=== PATIENT | male | born 1950 | race Caucasian/White ===

== ENCOUNTER 2019-08-16 12:04 | Outpatient (RCR) | payer BC, SELFPAY ==
[2019-05-31 12:44] LABS: INR 2.4; Prothrombin Time 25.6 Seconds (11.1-14.7)
[2019-07-08 12:50] LABS: INR 2.3; Prothrombin Time 24.4 Seconds (11.1-14.7)
[2019-08-16 13:39] LABS: INR 1.4; Prothrombin Time 16.6 Seconds (11.1-14.7)
== END 2019-08-29 23:59 | disposition home or self-care (01) ==
LOC: ANHLAB 12:04
PROVIDERS: PCP Internal Medicine; Visit Provider Internal Medicine
DX: Z51.81 Encounter for therapeutic drug level monitoring (principal); Z79.01 Long term (current) use of anticoagulants
CPT/HCPCS: 36415; 85610

== ENCOUNTER 2019-12-18 10:43 | Outpatient (RCR) | payer BC, SELFPAY ==
[2019-09-20 10:48] LABS: INR 1.2
[2019-10-07 13:47] LABS: INR 1.4; Prothrombin Time 16.3 Seconds (11.1-14.7)
[2019-10-21 12:31] LABS: INR 1.6; Prothrombin Time 18.7 Seconds (11.1-14.7)
[2019-11-21 10:51] LABS: INR 2.7; Prothrombin Time 27.9 Seconds (11.1-14.7)
[2019-12-18 11:18] LABS: INR 2.7; Prothrombin Time 27.8 Seconds (11.1-14.7)
== END 2019-12-19 23:59 | disposition home or self-care (01) ==
LOC: ANHLAB 10:43
PROVIDERS: PCP Internal Medicine; Visit Provider Physician Assistant
DX: I48.0 Paroxysmal atrial fibrillation (principal)
CPT/HCPCS: 36415; 85610

== ENCOUNTER 2020-04-08 09:30 | Outpatient (RCR) | payer BC, SELFPAY ==
[2020-01-17 12:37] LABS: INR 4.2; Prothrombin Time 39.9 Seconds (11.1-14.7)
[2020-02-04 11:07] LABS: INR 2.2; Prothrombin Time 24.1 Seconds (11.1-14.7)
[2020-03-07 11:26] LABS: Prothrombin Time 22.4 Seconds (11.1-14.7)
[2020-04-08 10:07] LABS: INR 2.2; Prothrombin Time 24.3 Seconds (11.1-14.7)
== END 2020-04-16 23:59 | disposition home or self-care (01) ==
LOC: ANHLAB 09:30
PROVIDERS: PCP Internal Medicine; Visit Provider Physician Assistant
DX: I48.0 Paroxysmal atrial fibrillation (principal)
CPT/HCPCS: 36415; 85610

== ENCOUNTER 2020-08-14 08:29 | Outpatient (RCR) | payer BC, SELFPAY ==
[2020-06-02 10:58] LABS: INR 2.5; Prothrombin Time 27.3 Seconds (11.1-14.7)
[2020-07-13 14:32] LABS: INR 2.5; Prothrombin Time 27.9 Seconds (11.1-14.7)
[2020-08-14 09:14] LABS: INR 2.3; Prothrombin Time 25.8 Seconds (11.1-14.7)
== END 2020-08-31 23:59 | disposition home or self-care (01) ==
LOC: ANHLAB 08:29
PROVIDERS: PCP Internal Medicine; Visit Provider Physician Assistant
DX: I48.0 Paroxysmal atrial fibrillation (principal)
CPT/HCPCS: 36415; 85610

== ENCOUNTER → 2020-12-07 02:47 | Outpatient (CLI) | payer BC, SELFPAY ==
[2020-12-07 17:43] LABS: SARS-CoV-2 RNA PCR Negative
== END ==
PROVIDERS: PCP Internal Medicine; Visit Provider Internal Medicine Gastroenterology
DX: Z01.812 Encounter for preprocedural laboratory examination (principal); Z20.822 Contact with and (suspected) exposure to COVID-19
CPT/HCPCS: C9803; U0003; U0005

== ENCOUNTER 2020-12-10 00:40 | Day surgery (SDC) | payer BC, SELFPAY ==
[2020-12-01 10:28] VITALS: BMI 29.2
[2020-12-10] MEDS: LACTATED RINGERS 1,000 ML 150 ML IV CONT (09:23)
[2020-12-10 09:30] VITALS: BP 131/84; PULSE 91; RESP 16; TEMP 35.9; O2SAT 98
--- NOTE | 2020-12-10 09:34 | P.CONGI_ITS ---
GI Consult Note Consult date/time: 12/10/20 09:34 HPI: Reason for visit colonoscopy. This very pleasant gentleman seen in consultation request the primary physician. Impression: Screening and surveillance colonoscopy. The patient has a history of adenomatous colon polyps. History of atrial fibrillation. History DVT. Recommendation: Colonoscopy. History: Very pleasant gentleman is here for screening and surveillance colonoscopy. He has a history of colon polyps. GI review systems negative. Physical examination: General: very pleasant patient in no acute distress. HEENT: Head was normocephalic sclerae is clear mouth without masses neck was supple. Heart: Rate rhythm regular without S3 or S4. Lungs: CTA. Abdomen: Soft with no guarding or rigidity. Bowel sounds were active. Neurologic: Cranial nerves 2 through 12 intact. No focal defects. No clonus. Musculoskeletal system: Revealed no joint tenderness or swelling no muscle atrophy. Extremities: Reveal no significant edema. Skin: Warm and dry with normal turgor. Mental status: intact. Patient is alert and oriented. Review of Systems Review of Systems: All systems reviewed & are unremarkable except as noted in HPI and below [facility] Family History Family History Mother Family history of Alzheimer's disease, Onset Age: 77 Patient's mother is Sibling Diabetes mellitus Social History Social History Smoking packs per day: 0.5 Smoking cigarettes per day: 10.0 Years smoked: 20 Smoking pack-years: 10.00 Smoking status: Former smoker Tobacco type: cigarettes Second hand tobacco smoke exposure: No Smoking end date: 06/26/14 Alcohol intake: current Drinks per week: 7 Alcohol use details: COCKTAILS Substance use: never Substance use type: does not use Living arrangements: with family Spiritual care concerns: No Meds Home Medications and Allergies Home Medications Medication Instructions Recorded Confirmed Type warfarin 5 mg tablet 5 mg PO DAILY #90 tablet 06/01/20 12/01/20 Rx carvedilol 3.125 mg tablet 3.125 mg PO Q12H #180 tablet 06/12/20 12/10/20 Rx furosemide 20 mg tablet 20 mg PO QAM #90 tablet 09/08/20 12/01/20 Rx sildenafil 100 mg tablet 100 mg PO DAILY PRN #27 tablet 11/05/20 12/01/20 Rx Allergies Allergy/AdvReac Type Severity Reaction Status Date / Time No Known Allergies Allergy Verified 12/10/20 09:15 Vital Signs Vital Signs - 24 hr 12/10/20 09:30 Temperature 35.9 C L Pulse Rate 91 Respiratory Rate 16 Blood Pressure 131/84 Pulse Oximetry 98
[2020-12-10 10:15] LABS: Prothrombin Time 13.9 Seconds (11.1-14.7)
[2020-12-10 10:16] LABS: Partial Thromboplastin Time 27.4 SECONDS (22.3-36.8)
--- NOTE | 2020-12-10 10:51 | WPDANESEPPF ---
Anes - Initial Pre Proc Eval Procedure: Operation Date: 12/10/20 10:30 Proposed Procedures p Colonoscopy - Ryan Kruse DO Date/Time: 12/10/20 10:51 Surgeon: Ryan Kruse DO Pre Op Diagnosis: Hx of colon polyps, neoplasm screening Patient Data Age: 70 Gender: M Height: 6 ft Weight: 98 kg Last Vital Signs Temp 96.7 F L 12/10/20 09:30 Pulse 91 12/10/20 09:30 Resp 16 12/10/20 09:30 BP 131/84 12/10/20 09:30 Pulse Ox 98 12/10/20 09:30 Allergies Allergy/AdvReac Type Severity Reaction Status Date / Time No Known Allergies Allergy Verified 12/10/20 09:15 Home Medications Medication Instructions Recorded Confirmed Type warfarin 5 mg tablet 5 mg PO DAILY #90 tablet 06/01/20 12/01/20 Rx carvedilol 3.125 mg tablet 3.125 mg PO Q12H #180 tablet 06/12/20 12/10/20 Rx furosemide 20 mg tablet 20 mg PO QAM #90 tablet 09/08/20 12/01/20 Rx sildenafil 100 mg tablet 100 mg PO DAILY PRN #27 tablet 11/05/20 12/01/20 Rx Laboratory Tests 12/10/20 09:16 PT 13.9 Seconds Seconds (11.1-14.7) INR 1.0 APTT 27.4 SECONDS SECONDS (22.3-36.8) Patient hx anesthesia problems: none Family hx anesthesia problems: none PMFSH Past Medical History Medical History (Updated 12/10/20 @ 10:40 by Chino Almonte MD) Gastro-esophageal reflux disease without esophagitis Paroxysmal atrial fibrillation Systolic heart failure, chronic Family History Family History Mother Family history of Alzheimer's disease, Onset Age: 77 Patient's mother is Sibling Diabetes mellitus Social History Social History Smoking packs per day: 0.5 Smoking cigarettes per day: 10.0 Years smoked: 20 Smoking pack-years: 10.00 Smoking status: Former smoker Tobacco type: cigarettes Second hand tobacco smoke exposure: No Smoking end date: 06/26/14 Alcohol intake: current Drinks per week: 7 Alcohol use details: COCKTAILS Substance use: never Substance use type: does not use Living arrangements: with family Spiritual care concerns: No Anes - Eval Final PreProcedure Day of Procedure 12/10/20 10:51 Patient weight: overweight Heart: regular rate and rhythm Lungs: clear to auscultation Airway: Mallampati scale class II Neurological: alert and oriented Last oral intake: >/= 8 hours ASA classification: III Emergent: no Anesthetic plan: proceed Anesthesia type and monitoring: general GIVS and standard monitoring Informed Consent: The patient's anesthetic plan and its attendant risks and benefits were discussed with the patient/family/POA. Questions were solicited and answers provided to the satisfaction of the patient/family/POA.
[2020-12-10 11:35] VITALS: BP 110/74; PULSE 73; RESP 16; O2SAT 92
[2020-12-10 11:45] VITALS: BP 113/75; PULSE 67; RESP 19; O2SAT 98
[2020-12-10 11:55] VITALS: BP 112/82; PULSE 68; RESP 17; O2SAT 97
--- NOTE | 2020-12-10 12:26 | SUR.PHASEII ---
Patient to resume coumadin today and lovenox in [address] Kruse. Instructions given to pt and spouse who state understanding. Script given to pt to have PT/INR on Monday.
== END 2020-12-10 12:14 | disposition home or self-care (01) ==
PROVIDERS: PCP Internal Medicine; Visit Provider Internal Medicine Gastroenterology
PROC: 0DJD8ZZ Inspection of Lower Intestinal Tract, Via Natural or Artificial Opening Endoscopic (ICD-10-PCS; CPT 45378; principal; 2020-12-10 10:30)
DX: Z12.11 Encounter for screening for malignant neoplasm of colon (principal); D12.2 Benign neoplasm of ascending colon; K63.5 Polyp of colon; K62.1 Rectal polyp; K57.30 Diverticulosis of large intestine without perforation or abscess without bleeding; K64.8 Other hemorrhoids; I48.0 Paroxysmal atrial fibrillation; K21.9 Gastro-esophageal reflux disease without esophagitis; I50.22 Chronic systolic (congestive) heart failure; Z87.891 Personal history of nicotine dependence; Z86.718 Personal history of other venous thrombosis and embolism; Z79.01 Long term (current) use of anticoagulants
CPT/HCPCS: 45385; 45380; 36415; 85610; 85730; 88305; J7120

== ENCOUNTER 2020-12-12 08:30 | Outpatient (RCR) | payer BC, SELFPAY ==
[2020-09-14 08:55] LABS: INR 2.7; Prothrombin Time 29.6 Seconds (11.1-14.7)
[2020-10-17 12:13] LABS: INR 2.6; Prothrombin Time 28.3 Seconds (11.1-14.7)
[2020-11-17 08:35] LABS: INR 2.9; Prothrombin Time 30.7 Seconds (11.1-14.7)
[2020-12-12 09:22] LABS: INR 1.2; Prothrombin Time 15.4 Seconds (11.1-14.7)
== END 2020-12-13 23:59 | disposition home or self-care (01) ==
LOC: ANHLAB 08:30
PROVIDERS: PCP Internal Medicine; Visit Provider Physician Assistant
DX: I48.0 Paroxysmal atrial fibrillation (principal)
CPT/HCPCS: 36415; 85610

== ENCOUNTER 2021-02-15 08:25 | Outpatient (RCR) | payer BC, SELFPAY ==
[2020-12-19 10:27] LABS: INR 2.2; Prothrombin Time 24.6 Seconds (11.1-14.7)
[2021-01-13 09:05] LABS: INR 3.4; Prothrombin Time 33.4 Seconds (11.1-14.7)
[2021-02-15 09:15] LABS: INR 3.1; Prothrombin Time 30.7 Seconds (11.1-14.7)
== END 2021-03-19 23:59 | disposition home or self-care (01) ==
LOC: ANHLAB 08:25
PROVIDERS: PCP Internal Medicine; Visit Provider Physician Assistant
DX: I48.0 Paroxysmal atrial fibrillation (principal)
CPT/HCPCS: 36415; 85610

== ENCOUNTER 2021-06-07 09:35 | Outpatient (RCR) | payer BC, SELFPAY ==
[2021-03-27 10:49] LABS: INR 2.4; Prothrombin Time 25.6 Seconds (11.1-14.7)
[2021-04-30 13:24] LABS: INR 2.1; Prothrombin Time 22.7 Seconds (11.1-14.7)
[2021-06-07 10:21] LABS: INR 1.9
== END 2021-06-25 23:59 | disposition home or self-care (01) ==
LOC: ANHLAB 09:35
PROVIDERS: PCP Internal Medicine; Visit Provider Physician Assistant
DX: I48.0 Paroxysmal atrial fibrillation (principal)
CPT/HCPCS: 36415; 85610

== ENCOUNTER 2021-09-08 10:24 | Outpatient (RCR) | payer BC, MEDICARE, SELFPAY ==
[2021-07-14 10:32] LABS: INR 2.1; Prothrombin Time 22.9 Seconds (11.1-14.7)
[2021-08-11 10:50] LABS: INR 2.8; Prothrombin Time 28.6 Seconds (11.1-14.7)
[2021-09-08 11:30] LABS: INR 2.7; Prothrombin Time 27.7 Seconds (11.1-14.7)
== END 2021-10-12 23:59 | disposition home or self-care (01) ==
LOC: ANHLAB 10:24
PROVIDERS: PCP Internal Medicine; Visit Provider Physician Assistant
DX: I48.0 Paroxysmal atrial fibrillation (principal)
CPT/HCPCS: 36415; 85610

== ENCOUNTER 2021-12-23 09:41 | Outpatient (RCR) | payer MEDICARE, SELFPAY ==
[2021-10-25 12:11] LABS: INR 2.2; Prothrombin Time 24.1 Seconds (11.1-14.7)
[2021-12-23 10:32] LABS: INR 2.9; Prothrombin Time 29.7 Seconds (11.1-14.7)
== END 2022-01-23 23:59 | disposition home or self-care (01) ==
LOC: ANHLAB 09:41
PROVIDERS: PCP Internal Medicine; Visit Provider Internal Medicine
DX: Z51.81 Encounter for therapeutic drug level monitoring (principal); Z86.718 Personal history of other venous thrombosis and embolism; Z79.01 Long term (current) use of anticoagulants
CPT/HCPCS: 36415; 85610

== ENCOUNTER 2022-02-08 10:44 | Outpatient (RCR) | payer MEDICARE, SELFPAY ==
[2022-02-08 11:37] LABS: INR 1.8; Prothrombin Time 20.4 Seconds (11.1-14.7)
== END 2022-05-09 23:59 | disposition home or self-care (01) ==
LOC: ANHLAB 10:44
PROVIDERS: PCP Internal Medicine; Visit Provider Internal Medicine
DX: Z51.81 Encounter for therapeutic drug level monitoring (principal); Z86.718 Personal history of other venous thrombosis and embolism; Z79.01 Long term (current) use of anticoagulants
CPT/HCPCS: 36415; 85610

== ENCOUNTER 2022-07-26 10:14 | Outpatient (RCR) | payer MEDICARE, SELFPAY ==
[2022-06-22 13:27] LABS: INR 3.4; Prothrombin Time 33.5 Seconds (11.1-14.7)
[2022-07-26 10:44] LABS: INR 2.7; Prothrombin Time 27.5 Seconds (11.1-14.7)
== END 2022-09-20 23:59 | disposition home or self-care (01) ==
LOC: ANHLAB 10:14
PROVIDERS: PCP Internal Medicine; Visit Provider Physician Assistant
DX: I48.0 Paroxysmal atrial fibrillation (principal)
CPT/HCPCS: 36415; 85610